=== PATIENT | female | born 1940 | race Caucasian/White ===

== ENCOUNTER 2018-11-09 20:31 | Inpatient (IN) ==
[2018-11-10] MEDS ORDERED: Acetaminophen 325 MG TABLET PO ONE (00:24)
[2018-11-10] MEDS ORDERED: Naloxone 0.4 MG/ML INJ IVP PRN (01:42)
[2018-11-10] MEDS ORDERED: Ondansetron 4 MG/2 ML VIAL IVP PRN (01:42)
[2018-11-10] MEDS ORDERED: hydrOXYzine pamoate 25 MG CAPSULE PO PRN (01:49)
[2018-11-10] MEDS ORDERED: D5% in Water 1,000 ML IVC PRN (01:50)
[2018-11-10] MEDS ORDERED: Dextrose Gel 15 GM/37.5 ML TUBE PO PRN ×2 (01:50)
[2018-11-10] MEDS ORDERED: *HR* Dextrose 50 % in Water (Syg) 50 ML SYRINGE IVP PRN (01:50)
[2018-11-10] MEDS: 0.9 % Sodium Chloride 1,000 ML IVC SCH ×2 (02:22→16:14)
[2018-11-10 02:39] LABS: Basophils # 0.1 K/mcL (0.0-0.2); Basophils % 0.7 %; Eosinophils # 0.3 K/mcL (0.0-0.6); Eosinophils % 2.1 %; Hemoglobin 7.6 g/dL (11.5-15.4); Immature Granulocytes % 0.6 % (0-4); Lymphocytes # 2.7 K/mcL (0.6-4.6); Lymphocytes % 21.2 %; Mean Corpuscular HGB Conc 29.2 g/dL (31.6-35.5); Mean Corpuscular Hemoglobin 18.4 pg (28.0-33.3); Mean Corpuscular Volume 63.1 fL (83.0-100.0); Monocytes # 1.3 K/mcL (0.0-1.3); Monocytes % 10.1 %; Neutrophils # 8.2 K/mcL (1.6-8.9); Nucleated Red Blood Cells 0.2 /100 WBC (0); Platelet Count 484 K/mcL (140-400); Red Blood Count 4.12 M/mcL (3.82-4.97); Red Cell Distribution Width 25.4 % (11.5-14.5); Segmented Neutrophils % 65.3 %; White Blood Count 12.5 K/mcL (4.3-11.1)
[2018-11-10 02:48] LABS: INR 1.1; Prothrombin Time 12.2 Seconds (9.4-12.1)
[2018-11-10 02:50] LABS: Activated Partial Thrombo Time 27.6 Seconds (26.0-36.0)
[2018-11-10 02:52] LABS: Alanine Aminotransferase 12 Units/L (7-52); Albumin 4.2 g/dL (3.5-5.7); Albumin/Globulin Ratio 1.4 (1.1-2.2); Alkaline Phosphatase 52 Units/L (34-104); Aspartate Amino Transferase 18 Units/L (13-39); BUN/Creatinine Ratio 17 (6-26); Bilirubin,Total 1.6 mg/dL (0.3-1.0); Blood Urea Nitrogen 17 mg/dL (8-23); Calcium 9.4 mg/dL (8.6-10.3); Carbon Dioxide 26 mEq/L (23-29); Chloride 98 mEq/L (98-107); Glucose 122 mg/dL (70-105); Magnesium 1.8 mg/dL (1.6-2.6); Osmolality,Calculated 287 (280-300); Potassium 3.5 mEq/L (3.5-5.1); Sodium 137 mEq/L (136-145); Total Protein 7.2 g/dL (6.4-8.9); eGFR For African Americans > 60 (> 60); eGFR For Non-African Americans 53 (> 60)
[2018-11-10 03:09] LABS: Anisocytosis 3+ (Not Present); Hypochromasia Present (Not Present)
[2018-11-10 03:10] LABS: Microcytosis Present (Not Present); Platelet Estimate Increased (Normal)
[2018-11-10] MEDS ORDERED: Insulin LISPRO 300 UNITS/3 ML VIAL SQ SCH (06:00)
[2018-11-10] MEDS: Pantoprazole 40 MG VIAL IVP SCH ×2 (06:29→18:33)
[2018-11-10] MEDS: Famotidine 20 MG TABLET PO SCH (08:30)
[2018-11-10 09:56] LABS: Estimated Average Glucose 137 mg/dl
[2018-11-10 12:18] LABS: Hematocrit 26.3 % (35.3-44.9); Hemoglobin 7.6 g/dL (11.5-15.4)
[2018-11-10] MEDS: Acetaminophen 325 MG TABLET PO PRN (14:47)
[2018-11-11] MEDS: Ipratropium/Albuterol Neb 3 ML IH PRN ×2 (01:05→19:31)
[2018-11-11 01:23] LABS: Hematocrit 24.6 % (35.3-44.9)
[2018-11-11] MEDS: Acetaminophen 325 MG TABLET PO PRN (01:32)
[2018-11-11 04:59] LABS: Basophils # 0.1 K/mcL (0.0-0.2); Eosinophils # 0.5 K/mcL (0.0-0.6); Eosinophils % 5.9 %; Hematocrit 27.3 % (35.3-44.9); Hemoglobin 7.7 g/dL (11.5-15.4); Immature Granulocytes % 0.4 % (0-4); Lymphocytes # 3.4 K/mcL (0.6-4.6); Lymphocytes % 37.8 %; Mean Corpuscular HGB Conc 28.2 g/dL (31.6-35.5); Mean Corpuscular Hemoglobin 18.2 pg (28.0-33.3); Mean Corpuscular Volume 64.5 fL (83.0-100.0); Mean Platelet Volume 8.9 fL (9.4-12.4); Monocytes % 11.5 %; Neutrophils # 3.9 K/mcL (1.6-8.9); Platelet Count 457 K/mcL (140-400); Red Blood Count 4.23 M/mcL (3.82-4.97); Red Cell Distribution Width 25.4 % (11.5-14.5); Segmented Neutrophils % 43.4 %
[2018-11-11 05:11] LABS: BUN/Creatinine Ratio 13 (6-26); Blood Urea Nitrogen 12 mg/dL (8-23); Calcium 8.7 mg/dL (8.6-10.3); Carbon Dioxide 27 mEq/L (23-29); Chloride 104 mEq/L (98-107); Glucose 107 mg/dL (70-105); Osmolality,Calculated 292 (280-300); Potassium 3.5 mEq/L (3.5-5.1); Sodium 141 mEq/L (136-145); eGFR For African Americans > 60 (> 60); eGFR For Non-African Americans 59 (> 60)
[2018-11-11 05:24] LABS: Platelet Estimate Increased (Normal)
[2018-11-11 05:25] LABS: Anisocytosis 2+ (Not Present); Microcytosis Present (Not Present); Poikilocytosis 2+ (Not Present)
[2018-11-11] MEDS: Pantoprazole 40 MG VIAL IVP SCH ×2 (05:30→16:56)
[2018-11-11] MEDS ORDERED: *HR* Propofol 200 MG/20 ML VIAL IVP ONE (06:37)
[2018-11-11] MEDS ORDERED: Lidocaine -MPF 2% 2 ML VIAL ONE (06:37)
[2018-11-11] MEDS: Famotidine 20 MG TABLET PO SCH (08:16)
[2018-11-11] MEDS ORDERED: Albuterol 2.5 MG/3 ML NEBULIZER IH PRN (16:19)
[2018-11-11] MEDS: Budesonide/Formoterol 80/4.5 1 PUFF INH IH SCH (19:31)
[2018-11-12] MEDS: Acetaminophen 325 MG TABLET PO PRN (03:32)
[2018-11-12 04:57] LABS: Hematocrit 25.4 % (35.3-44.9); Hemoglobin 7.1 g/dL (11.5-15.4)
[2018-11-12 04:59] LABS: Basophils # 0.1 K/mcL (0.0-0.2); Basophils % 0.9 %; Eosinophils # 0.7 K/mcL (0.0-0.6); Eosinophils % 5.7 %; Immature Granulocytes % 0.3 % (0-4); Lymphocytes # 3.1 K/mcL (0.6-4.6); Lymphocytes % 27.4 %; Mean Corpuscular Hemoglobin 18.2 pg (28.0-33.3); Mean Corpuscular Volume 65.1 fL (83.0-100.0); Mean Platelet Volume 9.6 fL (9.4-12.4); Monocytes # 1.1 K/mcL (0.0-1.3); Monocytes % 9.9 %; Neutrophils # 6.4 K/mcL (1.6-8.9); Platelet Count 359 K/mcL (140-400); Segmented Neutrophils % 55.8 %; White Blood Count 11.4 K/mcL (4.3-11.1)
[2018-11-12 05:14] LABS: Anisocytosis 2+ (Not Present)
[2018-11-12 05:15] LABS: % Iron Saturation 3 % (15-50); Hypochromasia Present (Not Present); Iron 15 mcg/dL (50-170); Macrocytosis Present (Not Present); Microcytosis Present (Not Present); Transferrin 341 mg/dL (203-362)
[2018-11-12 05:16] LABS: Ovalocytes 1+ (Not Present); Platelet Estimate Normal (Normal); Polychromasia 1+ (Not Present); Tear Drop Cells 1+ (Not Present)
[2018-11-12 05:17] LABS: Poikilocytosis 2+ (Not Present)
[2018-11-12 05:31] LABS: Ferritin < 8 ng/mL (10-120)
[2018-11-12 05:40] LABS: Folate > 22.3 ng/mL (3.0-16.0); Vitamin B12 274 pg/mL (250-1100)
[2018-11-12] MEDS: Pantoprazole 40 MG VIAL IVP SCH (06:51)
[2018-11-12] MEDS ORDERED: Ferumoxytol 510 MG in 0.9 % Sodium Chloride 100 ML IVPB ONE ×2 (08:12→15:03)
[2018-11-12] MEDS ORDERED: Tiotropium 18 MCG inhalation IH SCH (09:00)
[2018-11-12] MEDS ORDERED: hydroCHLOROthiazide 25 MG TABLET PO SCH (09:00)
[2018-11-12] MEDS ORDERED: Pyridoxine (B-6) 50 MG TABLET PO SCH (09:00)
[2018-11-12] MEDS: Budesonide/Formoterol 80/4.5 1 PUFF INH IH SCH (09:55)
[2018-11-12] MEDS: Famotidine 20 MG TABLET PO SCH (10:00)
[2018-11-12 11:29] LABS: Hematocrit 28.2 % (35.3-44.9); Hemoglobin 7.9 g/dL (11.5-15.4)
[2018-11-12 11:53] VITALS: BP 154/61
== END 2018-11-12 15:03 | disposition home or self-care (01) | DRG 811 ==
LOC: 3ANU → SUATTDRO 11-10 01:42
PROVIDERS: ADMIT Pediatrics; ATTEND Internal Medicine
PROC: ENDOEBX (2018-11-11 09:40)